=== PATIENT | male | born 1930 | race Caucasian/White ===

== ENCOUNTER → 2018-11-27 | Outpatient (CLI) | payer SELFPAY ==
[~2018-11-27] MED LIST: ASPI325 PO; ATOR40TA PO; FISH OIL 1,0001 EAC1 PO; GLIP5 PO; LISI20 PO; METF500C PO; Percocet 5-3251 EACH PO; TAMS.4ER PO
[2018-11-27 12:55] LABS: Source, Urine Clean Catch
[2018-11-27 14:32] LABS: Bilirubin, Urine Neg (Neg); Blood, Urine 1+ (Neg); Glucose Qualitative, Urine 4+ (Neg); Nitrite, Urine Neg (Neg); Protein, Urine 2+ (Neg); Specific Gravity, Urine 1.025 (1.003-1.022); Urobilinogen, Urine NORM (Normal)
[2018-11-27 14:45] LABS: Ketones, Urine 1+ (Neg); Leukocyte Esterase, Urine Neg (Neg)
[2018-11-27 15:08] LABS: Appearance, Urine Hazy (Clear); Color, Urine Yellow (P-Yellow)
[2018-11-27 15:10] LABS: Bacteria Rare /hpf; Squamous Epithelial Cells Mod /hpf (Few); White Blood Cells, Urine 0-2 /hpf (0-5)
== END | disposition home or self-care (01) ==
LOC: LAB SHORT 12:54 → LAB 12:54 → LAB FUT 11-09 13:40 → EDSTATUS 11-09 13:40
PROVIDERS: Urology
DX: N30.00 Acute cystitis without hematuria (principal)
CPT/HCPCS: 81001; 87086; 87106

== ENCOUNTER 2019-11-04 19:37 | Observation (INO) | payer OTHER ==
[~2019-11-04] VITALS: Ht 190.5 cm; Wt 95.2 kg
[2019-11-04 20:18] LABS: BASOPHILS ABSOLUTE AUTO 0.03 K/mm3 (0.00-0.23); BASOPHILS PERCENT AUTO 0 % (0-2); EOSINOPHILS PERCENT AUTO 0 % (0-6); Hematocrit 45.9 % (37.0-53.0); Hemoglobin 15.6 g/dL (13.5-17.5); IMMATURE GRAN PERCENT AUTO 1 % (0-1); LYMPHOCYTES ABSOLUTE AUTO 0.87 K/mm3 (0.84-5.20); LYMPHOCYTES PERCENT AUTO 5 % (21-46); MONOCYTES ABSOLUTE AUTO 1.68 K/mm3 (0.16-1.47); MONOCYTES PERCENT AUTO 10 % (4-13); Mean Corpuscular HGB 29.9 pg (26.0-34.0); Mean Corpuscular Volume 88 fL (80-100); NEUTROPHILS ABSOLUTE AUTO 14.07 K/mm3 (1.96-9.15); NEUTROPHILS PERCENT AUTO 84 % (41-73); RDW Coefficient Variation 13.3 % (11.7-14.2); RDW Standard Deviation 42.5 fL (35.1-46.3); Red Blood Cell Count 5.22 M/mm3 (4.30-5.90); White Blood Cell Count 16.75 K/mm3 (4.00-11.30)
[2019-11-04 20:22] LABS: Alanine Aminotransfer (ALT/SGP 40 U/L (12-78); Albumin/Globulin Ratio 0.9 (0.8-1.8); Alk Phos 119 U/L (50-136); Anion Gap 15 mmol/L (6-16); Aspartate Aminotrans (AST/SGOT 35 U/L (12-37); Bilirubin, Total 1.9 mg/dL (0.1-1.0); Blood Urea Nitrogen 53 mg/dL (8-24); Bun/Creatinine Ratio 45.3 (12.0-20.0); CO2, Blood 24 mmol/L (21-32); CPK Creatine Kinase 457 U/L (39-308); Calcium, Blood 9.8 mg/dL (8.5-10.1); Chloride, Blood 101 mmol/L (98-108); Creatinine, Blood 1.17 mg/dL (0.60-1.20); Globulin, Blood 4.4 g/dL (2.2-4.0); Glomerular Filtration Rate >60 (60-); Glucose, Blood 412 mg/dL (70-99); Potassium, Blood 4.2 mmol/L (3.5-5.5); Sodium, Blood 140 mmol/L (136-145); Total Protein, Blood 8.4 g/dL (6.4-8.2); Troponin I 0.019 ng/mL (0.000-0.040)
[2019-11-04 20:32] LABS: Mean Platelet Volume 10.5 fL (9.1-12.4); Platelet Count 149 K/mm3 (150-400)
[2019-11-04 20:37] LABS: Creatine Kinase MB 8.9 ng/mL (0.0-3.6); Creatine Kinase MB Index 1.9 (0.0-4.0)
[2019-11-04 21:54] LABS: Source, Urine Clean Catch
[2019-11-04 21:56] LABS: Appearance, Urine Clear (Clear); Bilirubin, Urine Neg (Neg); Blood, Urine 3+ (Neg); Color, Urine Yellow (P-Yellow); Glucose Qualitative, Urine 4+ (Neg); Ketones, Urine 3+ (Neg); Leukocyte Esterase, Urine Neg (Neg); Nitrite, Urine Neg (Neg); Protein, Urine 2+ (Neg); Urobilinogen, Urine NORM (Normal)
[2019-11-04 22:10] LABS: Bacteria Few /hpf; Squamous Epithelial Cells Rare /hpf (Few); White Blood Cells, Urine Rare /hpf (0-5)
[2019-11-05 04:39] LABS: Hemoglobin 15.1 g/dL (13.5-17.5); Mean Corpuscular HGB 30.3 pg (26.0-34.0); Mean Corpuscular HGB Conc 34.3 g/dL (31.5-36.5); Mean Corpuscular Volume 88 fL (80-100); Mean Platelet Volume 9.6 fL (9.1-12.4); Platelet Count 105 K/mm3 (150-400); RDW Coefficient Variation 13.6 % (11.7-14.2); RDW Standard Deviation 43.8 fL (35.1-46.3); Red Blood Cell Count 4.98 M/mm3 (4.30-5.90); White Blood Cell Count 12.65 K/mm3 (4.00-11.30)
[2019-11-05 04:56] LABS: Albumin, Blood 3.2 g/dL (3.4-5.0); Albumin/Globulin Ratio 0.9 (0.8-1.8); Bilirubin, Total 1.4 mg/dL (0.1-1.0); Bun/Creatinine Ratio 43.3 (12.0-20.0); Calcium, Blood 8.5 mg/dL (8.5-10.1); Creatinine, Blood 1.34 mg/dL (0.60-1.20); Globulin, Blood 3.6 g/dL (2.2-4.0); Potassium, Blood 4.2 mmol/L (3.5-5.5); Total Protein, Blood 6.8 g/dL (6.4-8.2)
[2019-11-05 05:06] LABS: BASOPHILS PERCENT MAN 0 % (0-2); EOSINOPHILS PERCENT MAN 0 % (0-6); LYMPHOCYTES PERCENT MAN 4 % (21-46); MONOCYTES ABSOLUTE MAN 1.13 K/mm3 (0.16-1.47); MONOCYTES PERCENT MAN 9 % (4-13); SEG NEUTROPHILS PERCENT MAN 87 % (41-73); TOTAL CELLS COUNTED 100
--- NOTE | 2019-11-05 05:54 | NUR ---
SHIFT SUMMARY PT ARRIVED TO UNIT FROM ED VIA STRETCHER @ 0100, TRANSFERRED TO BED WITH SLIDER SHEET AND 4 STAFF ASSIST. POA ACCOMPIANED TO ROOM FROM ED. PT UNABLE TO COMMUNICATE UPON ARRIVAL. WOUND CARE DONE, PIC IN CHART. BLADDER SCAN 822 ML, STRAIGHT CATH ORDER RECEIVED. PT REPOSITIONED @ 0450, AT THIS TIME PT WAS ABLE TO TALK WITH THIS RN. PT LAYING IN BED ON RIGHT SIDE WITH PILLOW FOR POSITIONING, CALL LIGHT AND PERSONAL ITEMS WITHIN REACH. BED IN LOWERED POSITION. BED ALARM ON. WILL CONTINUE TO MONITOR UNTIL REPORT GIVEN TO DAY RN.
[2019-11-05] MEDS ORDERED: ASPI325 PO (06:23)
[2019-11-05] MEDS ORDERED: OMEGA-3 FISH O1 EAC6 PO (06:26)
--- NOTE | 2019-11-05 23:27 | NUR ---
DROWSY PT VERY DROWSY/LETHARGIC @BEGINNING OF SHIFT. DAY NURSE REPORTED PT HAD BEEN DROWSY ALL DAY. AROUND 2026 THIS JOE PT IS UNABLE TO ANSWER ORIENTATION QUESTIONS CORRECTLY, & CAN ONLY STATE NAME-AOX1. HAS GARBLED SPEECH. UNABLE TO FOLLOW DIRECTIONS, COULD NOT SQUEEZE HANDS OR ANSWER YES/NO QUESTIONS, WAS ABLE TO STICK OUT TONGUE. ROUGHLY 2 HRS LATER @2233 I WENT BACK IN PTS RM & HE WAS ABLE TO FOLLOW ALL DIRECTIONS. 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 ANSWERS ORIENTATION QUESTIONS CORRECTLY, FORGETFUL OF EXACT DATE OTHERWISE AOX3. SPEECH IS CLEAR. ALERT & ABLE TO HAVE SIMPLE CONVERSATION c PT. WCTM. CALL LIGHT IN REACH.
--- NOTE | 2019-11-06 06:36 | NUR ---
SHIFT SUMMARY PT HAS BEEN AOX3-T/O NIGHT. FORGETFUL @TIMES. AWAKENS & ALERT TO VERBAL STIMULI. VSS. DENIES PAIN, N/V OR DYSPNEA. DID NOT VOID T/O NIGHT, BLADDER SCAN @0430 SHOWED 540ML IN BLADDER. STRAIGHT CATHED @0630 & 625ML URINE OUTPUT. AROUND 0000 PT WAS THIRSTY, GAVE ICE WATER & ROUGHLY 30MIN AFTER HE WAS HAVING ALOT OF COUGHING c CLEAR THICK SPUTUM. PT APPEARS TO BE RETCHING OCCASIONALLY EVEN WHILE @REST. REPORTS "CHOKING" OCCURS "ALL THE TIME" WHILE HE'S LYING. PT HAS ATTEMPTED TO USE BEDPAN MULTIPLE TIMES THIS AM STATING HE HAS THE URGE TO HAVE A BM, AT 0640 CHEMIC MANGLER CALLED ME INTO RM & STATED PT WAS ATTEMPTING TO GET OOB W/O HELP TO USE RESTROOM. MAX ASSISTED PT c GAIT BELT TO BSC, VERY WEAK/UNSTEADY GAIT, NEED MAX ASSIST/SIT TO STAND TO RETURN BACK TO BED. CALL LIGHT IN REACH.
--- NOTE | 2019-11-06 17:14 | NUR ---
SHIFT SUMMARY PT IS AO TO SELF AND . PT FORGETFUL TODAY. PT COULD NOT REMEMBER HAVING BREAKFAST OR HAVING DRINKS BROUGHT TO HIM. PT WORKED WITH PT WHO REPORTED DIFFICULTY WITH PIVOTS AND FOLLOWING DIRECTIONS.PT DENIES PAIN, N/V THIS SHIFT. PT WAS BLADDER SCANNED X2 WITH NO NEED TO STRAIGHT CATH. URINE OUTPUT IS INCONTINENT AND MINIMAL OUTPUT. PT BG WAS 455 THIS AM AND PHYSICIAN NOTIFIED WITH DOSAGE ADJUSTMENT TO INSULIN. PT IN CHAIR FOR MEALS THIS SHIFT. PT IS IN BED, CALL LIGHT IN REACH, BED IN LOW POSITION.
--- NOTE | 2019-11-07 06:46 | NUR ---
SHIFT SUMMARY AOX2-SELF & [place]. UNAWARE WHERE IN [place] HE IS STATES "BY THE [facility]", UNAWARE DATE OR PRESIDENT. DOES FOLLOW DIRECTIONS. HAS OCCASIONAL NONSENSICAL SPEECH. PLEASENT & COOPERATIVE c CARE. VSS. DENIES PAIN, N/V OR DYSPNEA. DID HAVE 1 INCONTINENT VOID, BLADDER SCAN SHOWED 701ML IN BLADDER-WHILE PUSHING ON BLADDER PT HAD ANOTHER INCONTINENT VOID, HOWEVER BLADDER SCAN SHOWED HE STILL HAD 580ML IN BLADDER. STRAIGHT CATH'D PT & PT HAD 450ML URINE OUT. AWAITING PLACEMENT. CALL LIGHT IN REACH & BED ALARM IN PLACE.
--- NOTE | 2019-11-07 17:11 | NUR ---
SHIFT SUMMARY PT IS AO TO SELF AND PLACE. PT EXHIBITS CONFUSION TO TIME/DATE/REASON FOR BEING AT [facility]. PT DENIES PAIN, SOB, N/V. PT HAD A SWALLOW EVAL AND WAS PUT ON NO MIXED CONSISTENCIES, NO STRAWS, AND MEDS GIVEN WITH APPLESAUCE. CURRENTLY WORKING ON PLACEMENT, POSSIBLY TO MEMORY CARE. PT IS COOPERATIVE WITH CARE AFTER EXPLANATION. NO VISITOR TODAY, BUT DID TALK TO HASEEB ON THE PHONE. PT HAS SLEPT IN BED DURING THIS SHIFT AND IN CHAIR FOR MEALS. PT IS CURRENTLY IN BED, ALARM ON, LOW POSITION WITH CALL LIGHT IN REACH.
--- NOTE | 2019-11-07 22:47 | NUR ---
2217 PT LYING IN BED, EYES CLOSED, APPEARS TO BE RESTING. BREATHING IS EVEN, UNLABORED.NO APPARENT SIGNS OF DISTRESS. CALL LIGHT IS IN REACH. BED ALARM IS ON.
--- NOTE | 2019-11-07 22:47 | NUR ---
2107 PT LYING IN BED. DENIES ANY DISCOMFORT AT THIS TIME. CALL LIGHT IS IN REACH. NO APPARENT SIGNS OF DISTRESS. BED ALARM IS ON.
--- NOTE | 2019-11-08 01:11 | NUR ---
BLADDER SCAN DONE, 626, NOT POST VOID, PT TO SLEEPY TO TRY TO VOID. SRAIGHT CATH DONE, 500 OUT. PT TURNED TO LEFT SIDE. NO APPARENT SIGNS OF DISTRESS. CALL LIGHT IS IN REACH. BED ALARM IS ON.
--- NOTE | 2019-11-08 03:06 | NUR ---
0200 PT LYING IN BED, EYES CLOSED, APPEARS TO BE RESTING. BREATHING IS EVEN, UNLABORED. NO APPARENT SIGNS OF DISTRESS. CALL LIGHT IS IN REACH. BED ALARM IS ON.
--- NOTE | 2019-11-08 06:33 | NUR ---
0400 PT LYING IN BED, EYES CLOSED, APPEARS TO BE RESTING. WAKES EASILY TO VERBAL STIMULI. NO APPARENT SIGNS OF DISTRESS. CALL LIGHT IS IN REACH. BED ALARM IS ON.
--- NOTE | 2019-11-08 06:34 | NUR ---
PT IS AAO X 2-3, ON RA. PT DENIED ANY DISCOMFORT FOR THIS SHIFT. BS WAS 197. PT HAS HEEL PROTECTORS ON. DRESSING ON BACK OF HEAD, L SHOULDER, TAILBONE L HIP.
--- NOTE | 2019-11-08 06:34 | NUR ---
PT IS LYING IN BED, EYES CLOSED, APPEARS TO BE RESTING. BREATHING IS EVEN, UNLABORED. NO APPARENT SIGNS OF DISTRESS. CALL LIGHT IS IN REACH. BED ALARM IS ON. NO OTHER CHANGES THIS SHIFT.
--- NOTE | 2019-11-08 09:13 | NUR ---
Patient did not eat breakfast this shift due to not being awake enough at this time. RN notified.
--- NOTE | 2019-11-08 16:52 | NUR ---
SHIFT SUMMARY PT IS AO TO SELF. PT IS IRRITABLE AT TIMES, BUT JOKES AROUND THE SHIFT PROGRESSES. PT STATES HE HAS "BURNING PAIN RIGHT IN THE CENTER OF MY CHEST WHEN I SWALLOW FOOD." PT STATES PAIN IS RELIEVED AFTER ANTACID ADMINISTRATION. PT DENIES SOB, N/V. PT WORKED WITH PT TODAY AND I TALKED TO THE FRIEND, HASEEB, ON THE PHONE TODAY. PT IS STILL AWAITING PLACEMENT AT THIS TIME. NO ACUTE CHANGES THIS SHIFT. PT HAS BEEN IN CHAIR FOR MEALS AND TOOK A MIDDAY NAP IN HIS BED. PT IS IN BED, ALARM ON, WITH CALL LIGHT IN REACH.
--- NOTE | 2019-11-08 22:03 | NUR ---
1926 PT LYING IN BED, DENIES DISCOMFORT AT THIS TIME. PT HAS ABRASIONS TO BACK OF HEAD, L SHOULDER, TAILBONE, AND L HIP. DRESSINGS ON TAILBONE AND L HIP ARE C/D/I. PT HAS REDNESS ON SCROTUM. USED POWDER ON SCROTUM. BS WAS 171. PT REPORTED HEARTBURN, GAVE TUMS AND ZOFRAN, WILL EVAL FOR EFFECT. NO OTHER APPARENT SIGNS OF DISTRESS. CALL LIGHT IS IN REACH. BED ALARM IS ON.
--- NOTE | 2019-11-08 23:41 | NUR ---
TURNED AND CHANGED PT. PT DENIES NEED FOR ANYTHING ELSE AT THIS TIME. NO APPARENT SIGNS OF DISTRESS. CALL LIGHT IS IN REACH. BED ALARM IS ON.
--- NOTE | 2019-11-09 02:12 | NUR ---
TURNED AND CHANGED PT. NO APPARENT SIGNS OF DISTRESS. CALL LIGHT IS IN REACH. BED ALARM IS ON.
--- NOTE | 2019-11-09 05:01 | NUR ---
TURNED AND CHANGED PT. NO APPARENT SIGNS OF DISTRESS. CALL LIGHT IS IN REACH. BED ALARM IS ON.
--- NOTE | 2019-11-09 05:01 | NUR ---
PT IS AAO X 2-3, ON RA. DENIED ANY DISCOMFORT FOR THIS SHIFT. ABRASIONS ON BACK OF HEAD, L SHOULDER, TAILBONE, AND L HIP. DRESSING ON L HIP IS C/D/I, CHANGED DRESSING ON TAILBONE. BS WAS 171. BLADDER SCAN PV AT 2109 WAS 300.
--- NOTE | 2019-11-09 06:27 | NUR ---
TURNED PT, NO APPARENT SIGNS OF DISTRESS. CALL LIGHT IS IN REACH. BED ALARM IS ON.NO OTHER CHANGES THIS SHIFT.
--- NOTE | 2019-11-09 09:47 | NUR ---
PATIENT SEEN BY PROVIDER. PATIENT IS GIVING THE DOCTOR CORRECT ANSWERS AND STATING THAT HE IS READY TO GO HOME. HE KNOWS HE IS IN THE HOSPITAL AND AWAITING A PLACE TO GET OUT OF HERE
--- NOTE | 2019-11-09 12:15 | NUR ---
PATIENT GETTIGN MORE CONFUSED THROUGHOUT THE DAY. REPORTS THAT WE SHOULD BE BATHING PATIENTS DURING THE DAY INSTEAD OF THE MIDDLE OF THE NIGHT. WHEN REORIENTED TO THE TIME HE STATES "IT CANT BE". CONTINUING TO REORIENT THE PATIENT
--- NOTE | 2019-11-09 12:34 | NUR ---
PATIENT DEFINITELY MORE PLEASANT, BUT ALSO NOTED TO BE MORE INNAPROPRIATE.
--- NOTE | 2019-11-09 18:05 | NUR ---
SHIFT SUMMARY PATIENT IS GETTING MORE AND MORE CONUSED. HE IS DETERMINED HE IS LEAVING TONIGHT AND REORTS THAT HE IS AWAITING HASEEB TO COME PICK HIM UP WE HAVE TRIED TO REDIRECT THE PATIENT. HE DENIES ANY NEED TO STILL BE IN THE HOSPITAL. HE IS CURRENTLY CONTENT WITH DINNER AND AWAITING ANY OTHER CONCERNS.
--- NOTE | 2019-11-10 04:28 | NUR ---
SHIFT SUMMARY PATIENT ALERT, UNABLE TO ANSWER SIMPLE ORIENTATION QUESTIONS, PARTIALLY DUE TO HIS INABILITY TO HEAR. PATIENT IS VERY WEAK AND HAS DIFFICULTY MOVING HIS FEET TO ASSIST WITH TRANSFERS. IV PATENT AND FLUSHED. BED IN LOWEST POSITION WITH WHEELS LOCKED AND ALARM ON. CALL LIGHT WITHIN REACH. REPORT GIVEN TO ONCOMING RN.
--- NOTE | 2019-11-10 17:28 | NUR ---
PATIENT ALERT AND ORIENTED TO SELF AND PLACE. IRRITABLE EASILY, HOWEVER DOES COOPERATE WITH CARE. VITALS HAVE BEEN STABLE. NO ACUTE CHANGES TO REPORT OF AT THIS TIME. WILL CONTINUE TO MONITOR AND PROVIDE CARE NEEDED.
--- NOTE | 2019-11-11 07:22 | NUR ---
SHIFT SUMMARY PATIENT PLEASANT TO WORK WITH OVERNIGHT. HAD NO COMPLAINTS OF PAIN. PATIENT REQUIRED BEING STRAIGHT CATHED AND HAD AN OUTPUT OF 500 ML. PATIENT SLEPT WELL OVERNIGHT. IV PATENT AND FLUSHED. BED IN LOWEST POSITION WITH WHEELS LOCKED AND ALARM ON. CALL LIGHT WITHIN REACH. REPORT GIVEN TO ONCOMING RN.
--- NOTE | 2019-11-11 15:12 | NUR ---
PATIENT IS COOPERATIVE HOWEVER VERY FIESTY WITH STAFF. HE ALLOWS CARE TO BE PERFORMED SCHEDULED EVEN THOUGH HE MIGHT NOT LIKE IT. VERY [place]. VITALS REMAIN STABLE. PATIENT STILL AWAITING PLACEMENT FOR DISCHARGE. NO ACUTE CHANGES NOTED OR REPORTED. WILL CONTINUE TO MONITOR AND PROVIDE CARE NEEDED.
--- NOTE | 2019-11-11 23:00 | NUR ---
RECEIVING NOTE RECEIVED HAND OFF FROM Juliet REY RN USING SBAR. LYING ON LEFT SIDE FACING WINDOW WITH EYES CLOSED. AAO X SELF ONLY, [place], FOLLOWS ALL COMMANDS. REORIENTED TO ROOM, CALL SYSTEM, AND POC, VOICES UNDERSTANDING. DENIES NEED OF PAIN MEDS. RESPIRATIONS EVEN AND UNLABORED ON ROOM AIR. LUNG SOUNDS CLEAR BILATERALLY. ABDOMEN SOFT AND NONDISTENDED. BOWEL SOUNDS PRESENT IN ALL QUADS. NO PIV OR TELE. INCONTINENT OF BLADDER AND BOWEL, ATTENDS IN PLACE, CHANGED PRN SOILING. DENIES FURTHER NEEDS OR WANTS AT THIS TIME. SAFETY MEASURES IN PLACE. WILL CONTINUE TO MONITOR.
--- NOTE | 2019-11-12 05:41 | NUR ---
SHIFT SUMMARY LYING RIGHT SIDE WITH EYES CLOSED. HAS RESTED WELL THROUGHOUT SHIFT. SWALLOWS MEDS WITH WATER, NO STRAWS. ATTENDS CHAGED PRN SOILING. DENIES FURTHER NEEDS AT THIS TIME. SAFETY MEASURES IN PLACE. WILL CONTINUE TO MONITOR AND GIVE HAND OFF TO ONCOMING SHIFT USING SBAR.
--- NOTE | 2019-11-12 15:52 | NUR ---
SHIFT SUMMARY PT IS A/O X 2 AND HAS NO C/O PAIN. HE IS [place] SO HE DOES YELL WHEN COMMUNICATING. HE DOES GET IRRITABLE WITH CARE AT TIMES BUT IS EASILY REDIRECTED. HIS SON CAME TO VISIT HIM TODAY AND MET WITH THE DC LEAN SIX SIGMA SENIOR SPECIALIST. THE SON REPORTS THAT THERE IS SOMEONE THE PT CAN STAY WITH UNTIL THEY GET HIS HOUSE SET UP AND ADA READY. THE PLAN IS FOR THE PT TO DC HOME ON TUESDAY. PT HAS BEEN INC OF BLADDER ALL DAY. HE IS ABLE TO MAKE HIS NEEDS KNOWN WHEN ASKED BUT DOES NOT USE THE CALL LIGHT. HIS BED ALARM IS ON FOR SAFETY.
--- NOTE | 2019-11-12 22:49 | NUR ---
BLADDER SCAN DONE PER ORDER WITH RESULT OF 268ML. PT. TOLERATED WELL, NO COMPLAINTS. WILL CONT TO MONITOR.
--- NOTE | 2019-11-13 05:32 | NUR ---
SHIFT SUMMARY- PT. IRRITABLE LAST NIGHT. C/O HEARTBURN, MEDICATED PER EMAR WITH GOOD EFFECT. NO OTHER COMPLAINTS T/O THE SHIFT. A&OX2, VERY [place]. BLADDER SCAN DONE PER ORDER =268ML. PT. INCONT, VOIDED LARGE AMOUNT DURING THE NIGHT. SLEPT ON/OFF THIS SHIFT. VSS. CALL LIGHT WIHTIN REACH, SIDE RAILS UPX2, AND BED ALARM ON FOR SAFETY. WILL CONT TO MONITOR.
--- NOTE | 2019-11-13 15:35 | NUR ---
SHIFT SUMMARY PT IS A/O X 2-3 WITH ONGOING CONFUSION AND FORGETFULNESS. HE IS [place] AND YELLS WHEN HE TALKS. PT HAS BEEN COOPERATIVE WITH HIS CARE. PLAN FOR PT TO DC TUESDAY IS STILL IN PLACE. HE IS RESTING IN BED AND HAS HIS CALL LIGHT IN REACH.
--- NOTE | 2019-11-13 21:46 | NUR ---
PATIENT COMPLAINING OF HEARTBURN. TUMS GIVEN PER EMAR.
--- NOTE | 2019-11-14 05:59 | NUR ---
GUIDE DOG MOBILITY INSTRUCTOR SUMMARY patient slept well except during repositioning and changing of briefs. Only discomfort he had was a complaint of heartburn at HS which was resolved with TUMS. No change in skin issues. Mepilex intact on coccyx. right hip pink. Lotion placed on area. patient frequently repositioned.
[2019-11-14] MEDS ORDERED: BASAGLAR K100 UNIT/1 SC (13:04)
[2019-11-14] MEDS ORDERED: HUMALOG KW100 UNIT/1 SC (13:06)
[2019-11-14] MEDS ORDERED: Seroquel Xr50 MG PO (13:08)
[2019-11-14] MEDS ORDERED: TAMS.4ER PO (13:08)
[2019-11-14] MEDS ORDERED: HUMALOG KW100 UNIT/1 (13:08)
[2019-11-14 13:19] LABS: Source, Urine Clean Catch
[2019-11-14 13:40] LABS: Appearance, Urine Cloudy (Clear); Bilirubin, Urine Neg (Neg); Blood, Urine 4+ (Neg); Color, Urine Yellow (P-Yellow); Glucose Qualitative, Urine 4+ (Neg); Ketones, Urine Neg (Neg); Leukocyte Esterase, Urine 3+ (Neg); Nitrite, Urine Neg (Neg); Protein, Urine 2+ (Neg); Urobilinogen, Urine NORM (Normal)
--- NOTE | 2019-11-14 13:42 | NUR ---
CLOUDY URINE AND DISCHARGE: KRYSTINA Mora, RN ASSISTED PATIENT WITH USING THE URINAL. NOTED THAT THE URINE WAS VERY CLOUDY AND WHITE IN COLOR. SHE NOTIFIED DR. ROTHMAN. NEW ORDERS RECEIVED. AWAITING RESULTS OF THE UA. COUNTY ASSESSOR, CARLA Walter VERIFIED THAT [facility] WILL BE ABLE TO PROVIDE THE PATIENT WITH HIS NEW PRESCRIPTIONS THIS EVENING. PATIENT TEMPERATURE (98.3) TAKEN AND DOCUMENTED PER DISCHARGE ORDERS.
[2019-11-14 14:09] LABS: White Blood Cells, Urine TNTC /hpf (0-5)
[2019-11-14 14:10] LABS: Red Blood Cells, Urine 0-2 /hpf (0-2); Squamous Epithelial Cells Not Seen /hpf (Few)
[2019-11-14 14:11] LABS: Bacteria Few /hpf
--- NOTE | 2019-11-14 14:26 | NUR ---
CALLED DR ROTHMAN- RESULTS ARE IN FOR THE PT UA THAT WAS COLLECTED. LEFT MESSAGE WAITING FOR A CALL BACK
--- NOTE | 2019-11-14 14:44 | NUR ---
UA RESULTS: SPOKE WITH DR. ROTHMAN ABOUT UA RESULTS. NEW ORDERS FOR A NOW DOSE OF ANTIBIOTIC AND DISCHARGE ANTIBIOTIC (SEE EMAR). NOTIFIED DR. ROTHMAN THAT [facility] HAS ASSURED THE RN THAT THE PATIENT'S INSULIN WILL BE READY THIS EVENING.
[2019-11-14] MEDS ORDERED: CEPH500 PO (14:58)
--- NOTE | 2019-11-14 15:34 | NUR ---
DISCHARGE: PATIENT DENIED PAIN OR DISCOMFORT THROUGHOUT SHIFT. PATIENT ABLE TO VOID WITHOUT DIFFICULTY, BOTH CONTINENT AND INCONTINENT. PATIENT UP TO THE CHAIR FOR MEALS. PATIENT ABLE TO FOLLOW DIRECTIONS. PATIENT [place], AND ABLE TO HEAR RN WHEN CLOSE TO HIS EAR. PATIENT HAS AN EXCELLENT APPETITIE. PATIENT HAD A LOWER BLOOD GLUCOSE THIS MORNING COMPARED TO RECENT NUMBERS. NOTED THAT YESTERDAY, THE PATIENT HAD HIS INSULIN HELD MULTIPLE TIMES. NOTIFIED DR. ROTHMAN. NEW ORDERS RECEIVED. SEE RN NOTE ABOUT UA. EDUCATION PROVIDED TO THE PATIENT'S SON. PATIENT REPORTED FAMILIARITY WITH INSULIN AND MONITORING BLOOD GLUCOSE. PROVIDED WRITTEN MATERIALS, VERBAL INSTRUCTION AND DEMONSTRATION. MEDICATION RX FAXED TO [facility], INCLUDING ADDED ON ANTIBIOTIC PER ORDERS. DISCHARGE INSTRUCTIONS AND EDUCATION PROVIDED. ALL QUESTIONS AND CONCERNS ADDRESSED. MEDICATED WITH NEW ANTIBIOTIC PRIOR TO DISCHARGE. PATIENT DISCHARGED IN WHEELCHAIR WITH SON AND RN. PATIENT STABLE AT TIME OF DISCHARGE.
== END 2019-11-14 15:25 | disposition home health service (06) ==
LOC: ER 19:37 → MEDS 19:38 → ERHOLD 19:38 → MEDS 11-05 01:00 → ENPENDDIS 11-14 14:13 → MEDS 11-14 15:25
PROVIDERS: Emergency Medicine; Internal Medicine; ADMIT Internal Medicine
DX: G92 Toxic encephalopathy (principal); E11.65 Type 2 diabetes mellitus with hyperglycemia; R65.10 Systemic inflammatory response syndrome (SIRS) of non-infectious origin without acute organ dysfunction; N40.0 Benign prostatic hyperplasia without lower urinary tract symptoms; I10 Essential (primary) hypertension; S01.01XA Laceration without foreign body of scalp, initial encounter; W19.XXXA Unspecified fall, initial encounter; E87.2 Acidosis; D72.823 Leukemoid reaction; Z85.51 Personal history of malignant neoplasm of bladder; F03.90 Unspecified dementia, unspecified severity, without behavioral disturbance, psychotic disturbance, mood disturbance, and anxiety; Z88.2 Allergy status to sulfonamides; Z79.4 Long term (current) use of insulin; Z79.899 Other long term (current) drug therapy; Z85.828 Personal history of other malignant neoplasm of skin; E78.5 Hyperlipidemia, unspecified; Z91.14 Patient's other noncompliance with medication regimen; E86.0 Dehydration; M62.82 Rhabdomyolysis
CPT/HCPCS: 36415; 51701; 70450; 71046; 72125; 80053; 81001; 82550; 82553; 82947; 83036; 83605; 84484; 85025; 85730; 87040; 87077; 87086; 87186; 92526; 92610; 93005; 93010; 96361; 96374; 97110; 97112; 97162; 97165; 97530; 97535; 99285-25; A9270-GY; G0378; J1630; J1650; J1815; J2405; J7030